=== PATIENT | male | born 1980 | race Caucasian/White ===

== ENCOUNTER 2017-01-01 22:18 | Emergency (ER) | payer BC ==
--- NOTE | 2017-01-01 22:45 | EDM.PDOC ---
ED HPI GENERAL MEDICAL PROBLEM - General Chief Complaint: Lower Extremity Injury/Pain Stated Complaint: PT HURT RT ANKLE Time Seen by Provider: 01/01/17 22:42 - History of Present Illness INITIAL COMMENTS - FREE TEXT/NARRATIVE: HISTORY AND PHYSICAL: History of present illness: Patient 36-year-old male presents with internal acute right ankle injury this occurred earlier today when he rolled his ankle he denies other trauma concern Review of systems: As per history of present illness and below otherwise all systems reviewed and negative. Past medical history: As per history of present illness and as reviewed below otherwise noncontributory. Surgical history: As per history of present illness and as reviewed below otherwise noncontributory. Social history: No reported history of drug or alcohol abuse. Family history: As per history of present illness and as reviewed below otherwise noncontributory. Physical exam: HEENT: Atraumatic, normocephalic, pupils reactive, negative for conjunctival pallor or scleral icterus, mucous membranes moist, throat clear, neck supple, nontender, trachea midline. Lungs: Clear to auscultation, breath sounds equal bilaterally, chest nontender. Heart: S1S2, regular, negative for clicks, rubs, or JVD. Abdomen: Soft, nondistended, nontender. Negative for masses or hepatosplenomegaly. Negative for costovertebral tenderness. Pelvis: Stable nontender. Genitourinary: Deferred. Rectal: Deferred. Extremities: Pain and swelling Thomas region lateral malleolus there is no crepitation or point tenderness no proximal fibular tenderness Achilles tendon is intact CMS neurovascular exam are unremarkable Neuro: Awake, alert, oriented. Cranial nerves II through XII unremarkable. Cerebellum unremarkable. Motor and sensory unremarkable throughout. Exam nonfocal. Diagnostics: X-ray right ankle Therapeutics: To be determined Impression: #1 acute right ankle injury Definitive disposition and diagnosis as appropriate pending reevaluation and review of above. right ankle Pain Score (Numeric/FACES): 9 - Related Data Allergies Allergy/AdvReac Type Severity Reaction Status Date / Time No Known Allergies Allergy Verified 01/01/17 22:36 Home Meds: Home Meds . [No Known Home Meds] 01/01/17 [History] Past Medical History HEENT History: Reports: None Cardiovascular History: Reports: None Respiratory History: Reports: None Gastrointestinal History: Reports: None Genitourinary History: Reports: None Musculoskeletal History: Reports: Other (See Below) Other Musculoskeletal History: fracture collar bone. compress fracture vertebra Neurological History: Reports: None Psychiatric History: Reports: None Endocrine/Metabolic History: Reports: None Hematologic History: Reports: None Immunologic History: Reports: None Oncologic (Cancer) History: Reports: None Dermatologic History: Reports: None - Infectious Disease History Infectious Disease History: Reports: None - Past Surgical History Head Surgeries/Procedures: Reports: None GI Surgical History: Reports: Appendectomy, Hernia, Inguinal Musculoskeletal Surgical History: Reports: Shoulder Surgery Social & Family History - Family History Family Medical History: Noncontributory - Tobacco Use Smoking Status *Q: Never Smoker - Caffeine Use Caffeine Use: Reports: Energy Drinks - Recreational Drug Use Recreational Drug Use: No Review of Systems - Review of Systems Review Of Systems: ROS reveals no pertinent complaints other than HPI. ED EXAM, GENERAL - Physical Exam Exam: See Below (See dictation) Course - Vital Signs Last Recorded V/S: Last Vital Signs Temp 36.5 C 01/01/17 22:36 Pulse 92 01/01/17 22:36 Resp 18 01/01/17 22:36 BP 131/81 01/01/17 22:36 Pulse Ox 98 01/01/17 22:36 - Orders/Labs/Meds Orders: Active Orders 24 hr Category Date Time Status Ankle Min 3V Rt [CR] Stat Exams 01/01/17 22:31 Taken Foot 2V Rt [CR] Stat Exams 01/01/17 22:31 Taken Departure - Departure Time of Disposition: 22:45 Disposition: Home, Self-Care 01 Condition: Good Clinical Impression: Ankle injury - Discharge Information Referrals: PCP,None [Primary Care Provider] - Forms: ED Department Discharge Additional Instructions: The following information is given to patients seen in the emergency department who are being discharged to home. This information is to outline your options for follow-up care. We provide all patients seen in our emergency department with a follow-up referral. The need for follow-up, as well as the timing and circumstances, are variable depending upon the specifics of your emergency department visit. If you don't have a primary care physician on staff, we will provide you with a referral. We always advise you to contact your personal physician following an emergency department visit to inform them of the circumstance of the visit and for follow-up with them and/or the need for any referrals to a consulting specialist. The emergency department will also refer you to a specialist when appropriate. This referral assures that you have the opportunity for followup care with a specialist. All of these measure are taken in an effort to provide you with optimal care, which includes your followup. Under all circumstances we always encourage you to contact your private physician who remains a resource for coordinating your care. When calling for followup care, please make the office aware that this follow-up is from your recent emergency room visit. If for any reason you are refused follow-up, please contact the [facility] emergency department at and asked to speak to the emergency department charge nurse Motrin/Tylenol as directed Lorenzo wrap crutches as discussed follow primary medical doctor 1-2 days return as needed as discussed[] - My Orders Last 24 Hours: My Active Orders 01/01/17 22:31 Ankle Min 3V Rt [CR] Stat Foot 2V Rt [CR] Stat - Assessment/Plan Last 24 Hours: My Active Orders 01/01/17 22:31 Ankle Min 3V Rt [CR] Stat Foot 2V Rt [CR] Stat
--- NOTE | 2017-01-02 14:52 | CR ---
EXAM DATE: 01/01/17 PATIENT'S AGE: 36 Patient: DEMETRIA GARCIA Facility: [place], [place] Site . Site : 1980 Study: XRay Extremity Right Ankle [id number]/7/2017 11:21:10 PM Ordering Physician: Doctor Porras Final Report: INDICATION: Twisted ankle TECHNIQUE: Ankle radiograph 3 views right COMPARISON: None FINDINGS: Bones: Alignment is normal. No acute fractures or aggressive bone lesions identified. Joint spaces: Unremarkable. No ankle joint effusion is seen. Soft tissues: Unremarkable. No radiopaque foreign bodies are seen. IMPRESSION: 1. No acute osseous injuries are noted. Dictated by: Nelson Red MD @ 01/01/2017 23:25:39 (Electronic Signature) Report Signed by Proxy. [facility] INSANEClare
--- NOTE | 2017-01-02 14:53 | CR ---
EXAM DATE: 01/01/17 PATIENT'S AGE: 36 Patient: DEMETRIA GARCIA Facility: [place], [place] Site . Site : 1980 Study: XRay Extremity Right Foot [id number]/7/2017 11:21:39 PM Ordering Physician: Doctor Porras Final Report: INDICATION: Foot pain TECHNIQUE: Foot radiograph 2 views right COMPARISON: None FINDINGS: Bones: No acute fractures or aggressive bone lesions are identified. Osseous remodeling is seen at the base of the 2nd and 3rd metatarsals, likely due to prior injuries. Joints: The visualized hindfoot, midfoot, and forefoot joints are unremarkable in appearance. No significant ankle effusion is seen. Soft tissue: Unremarkable. No radiopaque foreign bodies are seen. IMPRESSION: 1. No acute osseous injuries or abnormalities are noted. Dictated by Nelson Red MD @ 01/01/2017 11:26:47 PM Dictated by: Nelson Red MD @ 01/01/2017 23:27:00 (Electronic Signature) Report Signed by Proxy. SACHIN
== END 2017-01-02 00:39 | disposition home or self-care (01) ==
LOC: MW.ED 22:18
DX: S99.911A Unspecified injury of right ankle, initial encounter (principal); X50.9XXA Other and unspecified overexertion or strenuous movements or postures, initial encounter
CPT/HCPCS: 73610-26-RT; 73610-RT; 73620-26-RT; 73620-RT; 99282; 99283

== ENCOUNTER 2020-03-08 06:48 | Emergency (ER) | payer BC ==
[2020-03-08] MEDS ORDERED: Morphine 4 MG/ML Syringe IM ONE (07:09)
--- NOTE | 2020-03-08 07:19 | EDM.PDOC ---
ED HPI GENERAL MEDICAL PROBLEM - General Chief Complaint: Gastrointestinal Problem Stated Complaint: VOMITING Time Seen by Provider: 03/08/20 07:17 Source of Information: Reports: Patient History Limitations: Reports: No Limitations - History of Present Illness INITIAL COMMENTS - FREE TEXT/NARRATIVE: Patient is a 39-year-old male who presents today for epigastric pain. Patient states the pain started a few hours before arrival. Patient's pain is been squeezing in nature. Patient also reports she has had this pain in the past and normally goes away on its own. Patient denies any pain makes pain better rest pain worse. Patient does not like the pain radiates to his back. Patient denies any shortness of breath fever chills nausea vomiting or diarrhea. Upper Abdomen Pain Score (Numeric/FACES): 10 - Related Data Allergies Allergy/AdvReac Type Severity Reaction Status Date / Time No Known Allergies Allergy Verified 03/08/20 07:05 Home Meds: Home Meds Acetaminophen/HYDROcodone [[place] 325-5 MG] 1 tab PO Q6H PRN 2 Days #8 tablet 03/08/20 [Rx] Amoxicillin/Potassium Clav [Augmentin 875-125 Tablet] 1 each PO Q8HR 10 Days #30 tablet 03/08/20 [Rx] Mag Hydrox/Aluminum Hyd/Simeth [Maalox Maximum Strength Susp] 5 ml PO BID 5 Days #1 oral.susp 03/08/20 [Rx] Past Medical History - Past Health History Medical/Surgical History: Denies Medical/Surgical History HEENT History: Reports: None Cardiovascular History: Reports: None Respiratory History: Reports: None Gastrointestinal History: Reports: None Genitourinary History: Reports: None Musculoskeletal History: Reports: Other (See Below) Other Musculoskeletal History: fracture collar bone. compress fracture vertebra Neurological History: Reports: None Psychiatric History: Reports: None Endocrine/Metabolic History: Reports: None Hematologic History: Reports: None Immunologic History: Reports: None Oncologic (Cancer) History: Reports: None Dermatologic History: Reports: None - Infectious Disease History Infectious Disease History: Reports: None - Past Surgical History Head Surgeries/Procedures: Reports: None GI Surgical History: Reports: Appendectomy, Hernia, Inguinal Musculoskeletal Surgical History: Reports: Shoulder Surgery Social & Family History - Family History Family Medical History: No Pertinent Family History - Tobacco Use Tobacco Use Status *Q: Never Tobacco User - Caffeine Use Caffeine Use: Reports: Energy Drinks - Recreational Drug Use Recreational Drug Use: No ED ROS GENERAL - Review of Systems Review Of Systems: See Below Constitutional: Reports: No Symptoms HEENT: Reports: No Symptoms Respiratory: Reports: No Symptoms Cardiovascular: Reports: No Symptoms Endocrine: Reports: No Symptoms GI/Abdominal: Reports: Abdominal Pain : Reports: No Symptoms Musculoskeletal: Reports: No Symptoms Skin: Reports: No Symptoms Neurological: Reports: No Symptoms Psychiatric: Reports: No Symptoms Hematologic/Lymphatic: Reports: No Symptoms Immunologic: Reports: No Symptoms ED EXAM, GENERAL - Physical Exam Exam: See Below Exam Limited By: No Limitations General Appearance: Alert, WD/WN, Mild Distress Respiratory/Chest: No Respiratory Distress, Lungs Clear, Normal Breath Sounds Cardiovascular: Normal Peripheral Pulses, Regular Rate, Rhythm GI/Abdominal: Normal Bowel Sounds, Soft, Tender Extremities: Normal Inspection, Normal Range of Motion Neurological: Alert, CN II-XII Intact #1 Interpretation EKG Date: 03/08/20 Time: 06:55 Rhythm: NSR Rate (Beats/Min): 75 ST-T: Normal Course - Vital Signs Last Recorded V/S: Last Vital Signs Temp 97.8 F 03/08/20 07:02 Pulse 71 03/08/20 07:31 Resp 22 H 03/08/20 07:02 BP 140/95 H 03/08/20 07:31 Pulse Ox 96 03/08/20 07:31 - Orders/Labs/Meds Orders: Active Orders 24 hr Category Date Time Status EKG 12 Lead [EKG Documentation Completion] [RC] STAT Care 03/08/20 07:00 Active Labs: Laboratory Tests 03/08/20 03/08/20 03/08/20 Range/Units 06:54 06:54 06:54 WBC 7.74 (4.0-11.0) K/uL RBC 4.97 (4.50-5.90) M/uL Hgb 15.0 (13.0-17.0) g/dL Hct 43.6 (38.0-50.0) % MCV 87.7 (80.0-98.0) fL MCH 30.2 (27.0-32.0) pg MCHC 34.4 (31.0-37.0) g/dL RDW Std Deviation 39.1 (28.0-62.0) fl RDW Coeff of Elda 12 (11.0-15.0) % Plt Count 253 (150-400) K/uL MPV 10.60 (7.40-12.00) fL Neut % (Auto) 79.7 (48.0-80.0) % Lymph % (Auto) 14.0 L (16.0-40.0) % Chambers % (Auto) 4.5 (0.0-15.0) % Eos % (Auto) 1.4 (0.0-7.0) % Baso % (Auto) 0.4 (0.0-1.5) % Neut # (Auto) 6.2 H (1.4-5.7) K/uL Lymph # (Auto) 1.1 (0.6-2.4) K/uL Chambers # (Auto) 0.4 (0.0-0.8) K/uL Eos # (Auto) 0.1 (0.0-0.7) K/uL Baso # (Auto) 0.0 (0.0-0.1) K/uL Sodium 141 (136-148) mmol/L Potassium 3.9 (3.5-5.1) mmol/L Chloride 103 (98-107) mmol/L Carbon Dioxide 26.2 (21.0-32.0) mmol/L BUN 19 H (7.0-18.0) mg/dL Creatinine 1.3 (0.8-1.3) mg/dL Est Cr Clr Drug Dosing 77.53 mL/min Estimated GFR (MDRD) > 60.0 ml/min Glucose 126 H (74-106) mg/dL Calcium 10.1 (8.5-10.1) mg/dL Phosphorus 2.8 (2.6-4.7) mg/dL Magnesium 1.9 (1.8-2.4) mg/dL Total Bilirubin 0.4 (0.2-1.0) mg/dL AST 47 H (15-37) IU/L ALT 130 H (14-63) IU/L Alkaline Phosphatase 62 (46-116) U/L Troponin I < 0.050 (0.000-0.056) ng/mL Total Protein 8.0 (6.4-8.2) g/dL Albumin 4.3 (3.4-5.0) g/dL Globulin 3.7 (2.6-4.0) g/dL Albumin/Globulin Ratio 1.2 (0.9-1.6) Lipase 89 (73-393) U/L Ethyl Alcohol 3 mg/dL Meds: Medications Discontinued Medications Generic Name Dose Route Start Last Admin Trade Name Freq PRN Reason Stop Dose Admin Amoxicillin/Clavulanate Potassium 1 tab 03/08/20 09:33 03/08/20 09:48 Augmentin 875 Mg/125 Mg PO 03/08/20 09:34 1 tab ONETIME ONE Administration Al Hydroxide/Mg Hydroxide 15 0 ml 03/08/20 07:09 03/08/20 07:22 ml/ Lidocaine HCl 5 ml PO 03/08/20 07:10 1 each ONETIME ONE Administration Famotidine 20 mg 03/08/20 07:09 03/08/20 07:22 Pepcid IVPUSH 03/08/20 07:10 20 mg ONETIME ONE Administration Iopamidol 100 ml 03/08/20 08:42 03/08/20 08:54 Isovue Multipack-370 (76%) IVPUSH 03/08/20 08:43 100 ml ONETIME STA Administration Morphine Sulfate 4 mg 03/08/20 07:13 03/08/20 07:21 Morphine IVPUSH 03/08/20 07:14 4 mg ONETIME ONE Administration Ondansetron HCl 4 mg 03/08/20 07:22 03/08/20 07:25 Zofran IVPUSH 03/08/20 07:23 4 mg ONETIME ONE Administration Sodium Chloride 10 ml 03/08/20 07:24 03/08/20 07:24 Saline Flush FLUSH 03/08/20 07:25 10 ml ONETIME ONE Administration Sodium Chloride 2.5 ml 03/08/20 07:23 03/08/20 07:24 Saline Flush FLUSH 03/08/20 07:24 2.5 ml ONETIME ONE Administration - Re-Assessments/Exams Free Text/Narrative Re-Assessment/Exam: 03/08/20 10:03 EKG and troponins reviewed. Patient again has a heart score of 0 this is most likely GI related as he has some tenderness on examination. Patient has low- grade possible diverticulitis no signs of perforation patient will be sent home on antibiotics and can follow-up with GI as outpatient. Departure - Departure Time of Disposition: 10:04 Disposition: Home, Self-Care 01 Condition: Good Clinical Impression: Diverticulitis - Discharge Information *PRESCRIPTION DRUG MONITORING PROGRAM REVIEWED*: Not Applicable *COPY OF PRESCRIPTION DRUG MONITORING REPORT IN PATIENT SIRENA: Not Applicable Instructions: Diverticulitis, [id number] Referrals: PCP,None [Primary Care Provider] - Forms: ED Department Discharge Additional Instructions: The following information is given to patients seen in the emergency department who are being discharged to home. This information is to outline your options for follow-up care. We provide all patients seen in our emergency department with a follow-up referral. The need for follow-up, as well as the timing and circumstances, are variable depending upon the specifics of your emergency department visit. If you don't have a primary care physician on staff, we will provide you with a referral. We always advise you to contact your personal physician following an emergency department visit to inform them of the circumstance of the visit and for follow-up with them and/or the need for any referrals to a consulting specialist. The emergency department will also refer you to a specialist when appropriate. This referral assures that you have the opportunity for follow-up care with a specialist. All of these measure are taken in an effort to provide you with optimal care, which includes your follow-up. Under all circumstances we always encourage you to contact your private physician who remains a resource for coordinating your care. When calling for follow-up care, please make the office aware that this follow-up is from your recent emergency room visit. If for any reason you are refused follow-up, please contact the [facility] Emergency Department at and asked to speak to the emergency department charge nurse. Please follow up with your primary care physician. If you do not have a primary care physician, see below: [facility] [address] [place] [id number] [id number] Please follow-up with your primary care physician we have sent you antibiotics to the pharmacy as well as some medication to help out the pain. Sepsis Event Note (ED) - Evaluation Sepsis Screening Result: No Definite Risk - Focused Exam Vital Signs: Vital Signs Temp Pulse Resp BP Pulse Ox 03/08/20 07:31 71 140/95 H 96 03/08/20 07:24 71 158/100 H 99 03/08/20 07:02 97.8 F 76 22 H 150/103 H 99 - My Orders Last 24 Hours: My Active Orders 03/08/20 07:00 EKG 12 Lead [EKG Documentation Completion] [RC] STAT - Assessment/Plan Last 24 Hours: My Active Orders 03/08/20 07:00 EKG 12 Lead [EKG Documentation Completion] [RC] STAT Assessment:: Patient is a 39-year-old male presents today for epigastric pain. Patient has some gas tenderness on exam. Patient had pain for the past. Patient has a heart score of 0. This does not seem to be cardiac in nature. We will still order troponins and x-ray.
[2020-03-08] MEDS: Morphine 4 MG/ML Syringe IVPUSH ONE (07:21)
[2020-03-08] MEDS: Alum Hydrox/Mag Hydrox/Simeth 15 ML, Lidocaine 2% 5 ML PO ONE ×2 (07:22)
[2020-03-08] MEDS: Famotidine 20 MG/2 ML SDV IVPUSH ONE (07:22)
[2020-03-08] MEDS: Sodium Chloride 0.9% 10 ML Syringe FLUSH ONE (07:24)
[2020-03-08] MEDS: Sodium Chloride 0.9% 2.5 ML Syringe FLUSH ONE (07:24)
[2020-03-08] MEDS: Ondansetron 4 MG/2 ML SDV IVPUSH ONE (07:25)
[2020-03-08 07:27] LABS: BLOOD UREA NITROGEN,BUN 19 mg/dL (7.0-18.0); CARBON DIOXIDE,CO2 26.2 mmol/L (21.0-32.0); CHLORIDE,CL 103 mmol/L (98-107); GLUCOSE RANDOM 126 mg/dL (74-106); LIPASE 89 U/L (73-393); POTASSIUM,K 3.9 mmol/L (3.5-5.1); SODIUM,NA 141 mmol/L (136-148)
--- NOTE | 2020-03-08 07:31 | CR ---
HISTORY: Epigastric pain. TECHNIQUE: Portable frontal view of the chest. COMPARISON: None. FINDINGS: Mild elevation of the left hemidiaphragm. No airspace consolidation. No pleural effusion or pneumothorax. Pulmonary vasculature and cardiomediastinal silhouette are within normal limits. IMPRESSION: Mildly elevated left hemidiaphragm. No other cardiopulmonary abnormality. Dictated by Forest Diaz MD @ Mar 08 2020 7:29AM Signed by Dr. Forest Diaz @ Mar 08 2020 7:31AM
[2020-03-08] MEDS: Iopamidol 755 MG/ML 500 ML Multipack Bottle IVPUSH STA (08:54)
--- NOTE | 2020-03-08 09:21 | CT ---
Indication: Epigastric pain and tenderness Technique: Volumetric multidetector CT images of the abdomen and pelvis were obtained after the administration of intravenous contrast. 100 cc Isovue 370 low osmolar Comparison: None available. Findings: There is minimal bibasilar atelectasis versus scar. The liver demonstrates mild hepatic steatosis. There is no evidence of focal abnormality. The portal vein is patent. The gallbladder is unremarkable without evidence of radiopaque calculus. There is no significant common biliary ductal dilatation or abrupt cut off. The spleen is normal in enhancement and size. The stomach and duodenum are grossly unremarkable. The pancreas is normal in enhancement without significant atrophy. The adrenal glands are unremarkable. The kidneys demonstrate preserved corticomedullary differentiation without evidence of obstructive uropathy. There is distal colonic diverticulosis with questionable mild pericolonic inflammation of the proximal sigmoid colon. Otherwise the colon is grossly unremarkable. The appendix is not visualized. There is no significant mesenteric, retroperitoneal, or pelvic sidewall lymph nodes. The aorta is nonaneurysmal. There is no significant atherosclerotic disease appreciated. The solid pelvic viscera are grossly unremarkable. There is no free fluid or free air. The anterior abdominal wall is intact without significant hernias. The lumbar vertebral body heights are grossly maintained in satisfactory alignment without evidence of displaced fracture, lytic or blastic lesion. Impression: Moderate distal colonic diverticulosis with questionable subtle pericolonic inflammation which may represent low-grade diverticulitis. Correlate with history of clinical symptoms. Otherwise, no definite acute intra-abdominal abnormalities are appreciated. Please note that all CT scans at this facility use dose modulation, iterative reconstruction, and/or weight-based dosing when appropriate to reduce radiation dose to as low as reasonably achievable. Dictated by Sumit Santiago MD @ Mar 08 2020 9:02AM Signed by Dr. Sumit Santiago @ Mar 08 2020 9:19AM
[2020-03-08] MEDS: Amoxicillin/Clavulanate K 875-125 MG Tab PO ONE (09:48)
== END 2020-03-08 10:27 | disposition home or self-care (01) ==
LOC: MW.ED 06:48
DX: K57.32 Diverticulitis of large intestine without perforation or abscess without bleeding (principal)
CPT/HCPCS: 36415; 71045; 74177; 80053; 80179; 83690; 83735; 84100; 84484; 85025; 96374; 96375; 99284; A9270; J2270; J2405; J3490; Q9967; 93010

== ENCOUNTER 2020-05-04 08:22 | Observation (INO) | payer BC ==
[2020-05-04] MEDS ORDERED: Sodium Chloride 0.9% 2.5 ML Syringe FLUSH PRN (08:35)
[2020-05-04] MEDS ORDERED: Sodium Chloride 0.9% 10 ML Syringe FLUSH PRN (08:35)
[2020-05-04] MEDS ORDERED: Sodium Chloride 0.9% 1,000 ML IV ONE (08:36)
--- NOTE | 2020-05-04 08:38 | EDM.PDOC ---
ED HPI GENERAL MEDICAL PROBLEM - General Chief Complaint: Abdominal Pain Stated Complaint: VOMITING Time Seen by Provider: 05/04/20 08:25 - History of Present Illness INITIAL COMMENTS - FREE TEXT/NARRATIVE: History of present illness: [] Is in severe abdominal pain. It started terrible this morning about 2 AM. He has constant pain and vomiting.. Its a second episode in his life. He is not usually taking pain medicine does not have any history of addiction or pain medicine abuse. The patient has had one CT in his life which was done by my partner in February of this year when he was diagnosed with diverticulitis. He was able to be sent home with antibiotics and says that he did better. Review of systems: As per history of present illness and below otherwise all systems reviewed and negative. Past medical history: As per history of present illness and as reviewed below otherwise noncontributory. Surgical history: As per history of present illness and as reviewed below otherwise noncontributory. Social history: No reported history of drug or alcohol abuse. Family history: As per history of present illness and as reviewed below otherwise noncontributory. Physical exam: Constitutional - well developed, well-nourished and in no acute distress HEENT - normocephalic, no evidence of trauma - external nose and mouth normal - no mass in neck and no JVD - mucosae moist EYES - full EOM, PERRL, no icterus - no evidence of inflammation, injection, or drainage Respiratory - no respiratory distress, equal bilateral expansion, lungs clear to auscultation and no abnormal lung sounds Cardiovascular - Regular Rhythm with S1 and S2 appreciated and no murmur, gallop or rub. GI - abdomen guards diffusely especially in both lower quadrants. Without distension or organomegaly -managed bowel sounds - Musculoskeletal no gross deformity of long bones or joints - no tenderness, swelling or edema Neurologic - Alert and oriented times four - CN II-XII grossly intact - motor sensory and coordination symmetrically normal Psychiatric - appropriate mood and affect with normal thought content Hematologic - No petechiae or purpura - mucosa appropriate color and sclera not pale - normal nail bed color and refill Integument - no rash or evidence of trauma - normal turgor Diagnostics: [] Therapeutics: [] Impression: [] Plan: [] Definitive disposition and diagnosis as appropriate pending reevaluation and review of above. Abdominal Pain Score (Numeric/FACES): 10 - Related Data Allergies Allergy/AdvReac Type Severity Reaction Status Date / Time No Known Allergies Allergy Verified 05/04/20 08:35 Home Meds: Home Meds . [No Known Home Meds] 05/04/20 [History] Past Medical History - Past Health History Medical/Surgical History: Denies Medical/Surgical History HEENT History: Reports: None Cardiovascular History: Reports: None Respiratory History: Reports: None Gastrointestinal History: Reports: None Genitourinary History: Reports: None Musculoskeletal History: Reports: Other (See Below) Other Musculoskeletal History: fracture collar bone. compress fracture vertebra Neurological History: Reports: None Psychiatric History: Reports: None Endocrine/Metabolic History: Reports: None Hematologic History: Reports: None Immunologic History: Reports: None Oncologic (Cancer) History: Reports: None Dermatologic History: Reports: None - Infectious Disease History Infectious Disease History: Reports: None - Past Surgical History Head Surgeries/Procedures: Reports: None GI Surgical History: Reports: Appendectomy, Hernia, Inguinal Musculoskeletal Surgical History: Reports: Shoulder Surgery Social & Family History - Family History Family Medical History: No Pertinent Family History - Caffeine Use Caffeine Use: Reports: Energy Drinks ED ROS GENERAL - Review of Systems Review Of Systems: Comprehensive ROS is negative, except as noted in HPI. ED EXAM, GENERAL - Physical Exam Exam: See Below Free Text/Narrative:: My physical exam is in the HPI Course - Vital Signs Text/Narrative:: 090 6 AM the patient's pain is markedly improved. Patient is calm now. Awaiting CT. 11:59 AM patient had required a second dose of narcotic pain medicine. He had a positive Demarco sign on the ultrasound. He had sludge and stones with a dilated gallbladder. There was mild elevation of AST discussed with Dr. Km Alvarez and he said he would let the patient rest for a bit and then examined him in the emergency department and decide if he needed to have his gallbladder out emergently if he could go home and have it done electively at the clinic. [address] Alvarez is here the patient has requested a third dose of pain medicine Dr. Alvarez and patient will decide whether he needs to have an emergent cholecystectomy or can be seen in the clinic. 1:56 PM 1356 hrs. the patient and Dr. Alvarez decided he needed surgery tonight. This will be arranged and the patient will be placed in the outpatient unit. Last Recorded V/S: Last Vital Signs Temp 36.7 C 05/04/20 08:36 Pulse 72 05/04/20 11:33 Resp 18 05/04/20 08:36 BP 157/96 H 05/04/20 11:33 Pulse Ox 97 05/04/20 11:33 - Orders/Labs/Meds Orders: Active Orders 24 hr Category Date Time Status Admission Status [Patient Status] [ADT] Stat ADT 05/04/20 13:49 Ordered Dextrose 5%-0.45% NaCl [Dextrose 5%-1/2 NS] 1,000 ml Med 05/04/20 12:30 Active IV ASDIRECTED Sodium Chloride 0.9% [Saline Flush] Med 05/04/20 08:35 Active 10 ml FLUSH ASDIRECTED PRN Sodium Chloride 0.9% [Saline Flush] Med 05/04/20 08:35 Active 2.5 ml FLUSH ASDIRECTED PRN Saline Lock Insert [OM.PC] Stat Oth 05/04/20 08:35 Ordered Labs: Laboratory Tests 05/04/20 05/04/20 05/04/20 Range/Units 08:30 08:30 12:21 WBC 10.14 (4.0-11.0) K/uL RBC 4.94 (4.50-5.90) M/uL Hgb 14.8 (13.0-17.0) g/dL Hct 43.8 (38.0-50.0) % MCV 88.7 (80.0-98.0) fL MCH 30.0 (27.0-32.0) pg MCHC 33.8 (31.0-37.0) g/dL RDW Std Deviation 42.1 (28.0-62.0) fl RDW Coeff of Elda 13 (11.0-15.0) % Plt Count 328 (150-400) K/uL MPV 10.00 (7.40-12.00) fL Neut % (Auto) 91.2 H (48.0-80.0) % Lymph % (Auto) 6.3 L (16.0-40.0) % [place] % (Auto) 2.4 (0.0-15.0) % Eos % (Auto) 0.0 (0.0-7.0) % Baso % (Auto) 0.1 (0.0-1.5) % Neut # (Auto) 9.3 H (1.4-5.7) K/uL Lymph # (Auto) 0.6 (0.6-2.4) K/uL [place] # (Auto) 0.2 (0.0-0.8) K/uL Eos # (Auto) 0.0 (0.0-0.7) K/uL Baso # (Auto) 0.0 (0.0-0.1) K/uL Nucleated RBC % 0.0 /100WBC Nucleated RBCs # 0 K/uL Sodium 139 (136-148) mmol/L Potassium 3.7 (3.5-5.1) mmol/L Chloride 102 (98-107) mmol/L Carbon Dioxide 25.5 (21.0-32.0) mmol/L BUN 15 (7.0-18.0) mg/dL Creatinine 1.3 (0.8-1.3) mg/dL Est Cr Clr Drug Dosing 76.29 mL/min Estimated GFR (MDRD) > 60.0 ml/min Glucose 147 H (74-106) mg/dL Calcium 9.4 (8.5-10.1) mg/dL Total Bilirubin 0.5 (0.2-1.0) mg/dL AST 27 (15-37) IU/L ALT 65 H (14-63) IU/L Alkaline Phosphatase 55 (46-116) U/L Total Protein 7.7 (6.4-8.2) g/dL Albumin 4.2 (3.4-5.0) g/dL Globulin 3.5 (2.6-4.0) g/dL Albumin/Globulin Ratio 1.2 (0.9-1.6) Lipase 106 (73-393) U/L SARS-CoV-2 RNA (MARIA E) NEGATIVE (NEGATIVE) Departure - Departure Time of Disposition: 13:55 Disposition: Refer to Observation Condition: Good Clinical Impression: Biliary colic, Acute cholecystitis - Discharge Information Referrals: PCP,None [Primary Care Provider] - Forms: ED Department Discharge Sepsis Event Note (ED) - Focused Exam Vital Signs: Vital Signs Temp Pulse Resp BP Pulse Ox 05/04/20 11:33 72 157/96 H 97 05/04/20 08:36 36.7 C 66 18 140/82 98 - My Orders Last 24 Hours: My Active Orders 05/04/20 08:35 Sodium Chloride 0.9% [Saline Flush] 10 ml FLUSH ASDIRECTED PRN Sodium Chloride 0.9% [Saline Flush] 2.5 ml FLUSH ASDIRECTED PRN Saline Lock Insert [OM.PC] Stat 05/04/20 12:30 Dextrose 5%-0.45% NaCl [Dextrose 5%-1/2 NS] 1,000 ml IV ASDIRECTED 05/04/20 13:49 Admission Status [Patient Status] [ADT] Stat - Assessment/Plan Last 24 Hours: My Active Orders 05/04/20 08:35 Sodium Chloride 0.9% [Saline Flush] 10 ml FLUSH ASDIRECTED PRN Sodium Chloride 0.9% [Saline Flush] 2.5 ml FLUSH ASDIRECTED PRN Saline Lock Insert [OM.PC] Stat 05/04/20 12:30 Dextrose 5%-0.45% NaCl [Dextrose 5%-1/2 NS] 1,000 ml IV ASDIRECTED 05/04/20 13:49 Admission Status [Patient Status] [ADT] Stat
[2020-05-04] MEDS ORDERED: HYDROmorphone 2 MG/ML Syringe IVPUSH ONE ×3 (08:43→12:11)
[2020-05-04] MEDS ORDERED: Ondansetron 4 MG/2 ML SDV IVPUSH ONE ×2 (08:44→10:05)
[2020-05-04 09:01] LABS: BLOOD UREA NITROGEN,BUN 15 mg/dL (7.0-18.0); CARBON DIOXIDE,CO2 25.5 mmol/L (21.0-32.0); CHLORIDE,CL 102 mmol/L (98-107); GLUCOSE RANDOM 147 mg/dL (74-106); LIPASE 106 U/L (73-393); POTASSIUM,K 3.7 mmol/L (3.5-5.1); SODIUM,NA 139 mmol/L (136-148)
--- NOTE | 2020-05-04 10:40 | CT ---
INDICATION: Abdominal pain. Nausea and vomiting. TECHNIQUE: CT abdomen and pelvis acquired with 100 cc Isovue 370 IV contrast. COMPARISON: March 08, 2020. FINDINGS: Lower chest: Unremarkable. Liver: Unremarkable. Normal in size and attenuation. No masses. Gallbladder and bile ducts: Gallbladder is distended with evidence of gallbladder wall thickening/edema. No definite stones. No biliary dilatation. Pancreas: Unremarkable. No mass or inflammation. Spleen: Unremarkable. Normal in size. No masses. Adrenal glands: Unremarkable. No nodules. Kidneys: Unremarkable. No masses, stones, or hydronephrosis. GI tract: Subtle inflammatory changes and wall thickening amongst multiple diverticula in the sigmoid colon is similar to the prior exam. Remainder of the GI tract is normal in caliber and appearance. Vasculature: Unremarkable. Mesenteric arteries are patent. Lymph nodes: No lymphadenopathy. Omentum/Peritoneum/Abdominal Wall: Unremarkable. No sign of mass or infiltration. No free air or significant free fluid. Pelvis: Unremarkable. Bones: Unremarkable for age. IMPRESSION: 1. Gallbladder is moderately distended without evidence of wall thickening/edema. Findings are suspicious for acute cholecystitis. No gallstones visualized, however CT has a low sensitivity for gallstone detection. Ultrasound evaluation is recommended for further assessment. 2. Subtle inflammatory changes amongst multiple diverticula in the sigmoid colon are unchanged and likely chronic. Please note that all CT scans at this facility use dose modulation, iterative reconstruction, and/or weight-based dosing when appropriate to reduce radiation dose to as low as reasonably achievable. Dictated by Gregory Oliver MD @ May 04 2020 10:33AM Signed by Dr. Gregory Oliver @ May 04 2020 10:39AM
--- NOTE | 2020-05-04 11:48 | US ---
INDICATION: Abdominal pain. COMPARISON: CT earlier the same day. FINDINGS: The gallbladder is distended measuring up to 9.8 cm in length. The gallbladder is filled with echogenic debris, may represent sludge or stones. Gallbladder wall is thickened measuring up to 6 mm. No pericholecystic fluid. Reported positive sonographic Demarco`s. - The liver is unremarkable. The portal vein is patent and hepatopetal. Common bile duct is not well seen measuring approximately 1-2 mm in diameter. - The right kidney is unremarkable measuring 10.0 cm long axis. No hydronephrosis. Visualized portions of the pancreas are unremarkable. No ascites. IMPRESSION: 1. Findings suspicious for acute cholecystitis, as described above. Recommend surgical consultation for further management. Nuclear medicine HIDA scan could be obtained for further evaluation, as clinically warranted. 2. Other findings, as above. Dictated by Saleem Ahumada MD @ 05/04/2020 11:45:40 AM Dictated by: Saleem Ahumada MD @ 05/04/2020 11:45:49 (Electronically Signed)
[2020-05-04] MEDS ORDERED: Dextrose 5%-0.45% NaCl 1,000 ML IV SCH (12:30)
[2020-05-04] MEDS ORDERED: cefOXitin 2 GM in Premix Bag 1 BAG IV ONE ×3 (14:21→14:52)
[2020-05-04] MEDS ORDERED: Ondansetron 4 MG/2 ML SDV ONE (14:26)
[2020-05-04] MEDS ORDERED: Propofol 200 MG/20 ML SDV ONE ×2 (14:27→16:51)
[2020-05-04] MEDS ORDERED: Rocuronium Bromide 50 MG/5 ML Syringe ONE (14:27)
[2020-05-04] MEDS ORDERED: Glycopyrrolate 0.2 MG/ML SDV ONE (14:27)
[2020-05-04] MEDS ORDERED: fentaNYL 100 MCG/2 ML SDV ONE ×2 (14:27→16:56)
[2020-05-04] MEDS ORDERED: Midazolam 1 MG/ML 2 ML SDV ONE (14:27)
[2020-05-04] MEDS ORDERED: Sugammadex Sodium 200 MG/2 ML VIAL ONE ×2 (14:35→17:33)
[2020-05-04] MEDS ORDERED: Bupivacaine 25%/EPINEPHrine/PF 30 ML ONE (14:48)
[2020-05-04] MEDS ORDERED: cefOXitin 0 ML ONE (14:53)
[2020-05-04] MEDS ORDERED: Octyl 2-Cyanoacrylate 1 Tube ONE (15:17)
[2020-05-04] MEDS ORDERED: Dexamethasone 10 MG/ML SDV ONE (15:23)
[2020-05-04] MEDS ORDERED: Morphine 10 MG/ML Syringe ONE (15:52)
--- NOTE | 2020-05-04 16:11 | PCM.PREANE ---
Preanesthetic Assessment - Anesthesia/Transfusion/Family Hx Anesthesia History: Prior Anesthesia Without Reaction Family History of Anesthesia Reaction: No - Review of Systems General: No Symptoms Pulmonary: No Symptoms Cardiovascular: No Symptoms Gastrointestinal: Nausea, Vomiting Neurological: No Symptoms Other: Reports: None - Physical Assessment NPO Status Date: 05/04/20 NPO Status Time: 07:30 Vital Signs: Last Vital Signs Temp 36.7 C 05/04/20 08:36 Pulse 72 05/04/20 11:33 Resp 18 05/04/20 08:36 BP 157/96 H 05/04/20 11:33 Pulse Ox 97 05/04/20 11:33 Height: 1.75 m Weight: 85.729 kg ASA Class: 2E Mental Status: Alert & Oriented x3 Airway Class: Mallampati = 1 Dentition: Reports: Normal Dentition Thyro-Mental Finger Breadths: 3 Mouth Opening Finger Breadths: 3 ROM/Head Extension: Full Lungs: Clear to Auscultation, Normal Respiratory Effort Cardiovascular: Regular Rate, Regular Rhythm - Lab Values: Laboratory Last Values WBC 10.14 K/uL (4.0-11.0) 05/04/20 08:30 RBC 4.94 M/uL (4.50-5.90) 05/04/20 08:30 Hgb 14.8 g/dL (13.0-17.0) 05/04/20 08:30 Hct 43.8 % (38.0-50.0) 05/04/20 08:30 MCV 88.7 fL (80.0-98.0) 05/04/20 08:30 MCH 30.0 pg (27.0-32.0) 05/04/20 08:30 MCHC 33.8 g/dL (31.0-37.0) 05/04/20 08:30 RDW Std Deviation 42.1 fl (28.0-62.0) 05/04/20 08:30 RDW Coeff of Elda 13 % (11.0-15.0) 05/04/20 08:30 Plt Count 328 K/uL (150-400) 05/04/20 08:30 MPV 10.00 fL (7.40-12.00) 05/04/20 08:30 Neut % (Auto) 91.2 % (48.0-80.0) H 05/04/20 08:30 Lymph % (Auto) 6.3 % (16.0-40.0) L 05/04/20 08:30 [place] % (Auto) 2.4 % (0.0-15.0) 05/04/20 08:30 Eos % (Auto) 0.0 % (0.0-7.0) 05/04/20 08:30 Baso % (Auto) 0.1 % (0.0-1.5) 05/04/20 08:30 Neut # (Auto) 9.3 K/uL (1.4-5.7) H 05/04/20 08:30 Lymph # (Auto) 0.6 K/uL (0.6-2.4) 05/04/20 08:30 [place] # (Auto) 0.2 K/uL (0.0-0.8) 05/04/20 08:30 Eos # (Auto) 0.0 K/uL (0.0-0.7) 05/04/20 08:30 Baso # (Auto) 0.0 K/uL (0.0-0.1) 05/04/20 08:30 Nucleated RBC % 0.0 /100WBC 05/04/20 08:30 Nucleated RBCs # 0 K/uL 05/04/20 08:30 Sodium 139 mmol/L (136-148) 05/04/20 08:30 Potassium 3.7 mmol/L (3.5-5.1) 05/04/20 08:30 Chloride 102 mmol/L (98-107) 05/04/20 08:30 Carbon Dioxide 25.5 mmol/L (21.0-32.0) 05/04/20 08:30 BUN 15 mg/dL (7.0-18.0) 05/04/20 08:30 Creatinine 1.3 mg/dL (0.8-1.3) 05/04/20 08:30 Est Cr Clr Drug Dosing 76.29 mL/min 05/04/20 08:30 Estimated GFR (MDRD) > 60.0 ml/min 05/04/20 08:30 Glucose 147 mg/dL (74-106) H 05/04/20 08:30 Calcium 9.4 mg/dL (8.5-10.1) 05/04/20 08:30 Total Bilirubin 0.5 mg/dL (0.2-1.0) 05/04/20 08:30 AST 27 IU/L (15-37) 05/04/20 08:30 ALT 65 IU/L (14-63) H 05/04/20 08:30 Alkaline Phosphatase 55 U/L (46-116) 05/04/20 08:30 Total Protein 7.7 g/dL (6.4-8.2) 05/04/20 08:30 Albumin 4.2 g/dL (3.4-5.0) 05/04/20 08:30 Globulin 3.5 g/dL (2.6-4.0) 05/04/20 08:30 Albumin/Globulin Ratio 1.2 (0.9-1.6) 05/04/20 08:30 Lipase 106 U/L (73-393) 05/04/20 08:30 SARS-CoV-2 RNA (MARIA E) NEGATIVE (NEGATIVE) 05/04/20 12:21 - Allergies Allergies/Adverse Reactions: Allergies Allergy/AdvReac Type Severity Reaction Status Date / Time No Known Allergies Allergy Verified 05/04/20 08:35 - Acknowledgements Anesthesia Type Planned: General Anesthesia (The patients understands and accepts the anesthetic risks and benefits of General Anesthesia. All questions answered. Consent signed. ) Pt an Appropriate Candidate for the Planned Anesthesia: Yes Alternatives and Risks of Anesthesia Discussed w Pt/Guardian: Yes Pt/Guardian Understands and Agrees with Anesthesia Plan: Yes PreAnesthesia Questionnaire - Past Health History Medical/Surgical History: Denies Medical/Surgical History HEENT History: Reports: None Cardiovascular History: Reports: None Respiratory History: Reports: None Gastrointestinal History: Reports: Diverticulosis, GERD (not sure if this is related to the gallbladder or a new diagnosis) Genitourinary History: Reports: None Musculoskeletal History: Reports: Other (See Below) Other Musculoskeletal History: fracture collar bone. compress fracture vertebra Neurological History: Reports: None Psychiatric History: Reports: None Endocrine/Metabolic History: Reports: None Hematologic History: Reports: None Immunologic History: Reports: None Oncologic (Cancer) History: Reports: None Dermatologic History: Reports: None - Infectious Disease History Infectious Disease History: Reports: Other (See Below) (COVID NEGATIVE) - Past Surgical History Head Surgeries/Procedures: Reports: None GI Surgical History: Reports: Appendectomy, Hernia, Inguinal Musculoskeletal Surgical History: Reports: Shoulder Surgery - History Comment History Comment: ETOH "1-2X a week" - SUBSTANCE USE Tobacco Use Status *Q: Unknown Ever Used Tobacco Recreational Drug Use History: No - HOME MEDS Home Medications: Home Meds . [No Known Home Meds] 05/04/20 [History]
[2020-05-04] MEDS ORDERED: Morphine 10 MG/ML Syringe IVPUSH ONE (16:28)
[2020-05-04] MEDS ORDERED: Ketorolac 30 MG/ML SDV ONE (17:24)
[2020-05-04] MEDS ORDERED: Ondansetron 4 MG/2 ML SDV IVPUSH PRN (17:42)
[2020-05-04] MEDS ORDERED: Acetaminophen/HYDROcodone 325-5 MG Tab PO PRN (17:42)
[2020-05-04] MEDS ORDERED: HYDROmorphone 2 MG/ML Syringe IVPUSH PRN (17:42)
--- NOTE | 2020-05-04 17:42 | PCM.OPNOTE ---
- General Post-Op/Procedure Note Date of Surgery/Procedure: 05/04/20 Operative Procedure(s): Laparoscopic cholecystectomy Findings: distended and edematous gallbladder dictation number #[id number] Pre Op Diagnosis: Symptomatic cholelithiasis Post-Op Diagnosis: acute cholecystitis Anesthesia Technique: General ET Tube Primary Surgeon: Km Alvarez Pathology: gallbladder EBL in mLs: 10 Complications: None Condition: Stable
[2020-05-04] MEDS ORDERED: Lactated Ringers 1,000 ML IV SCH (17:45)
[2020-05-04] MEDS ORDERED: cefOXitin 2 GM in Premix Bag 1 BAG IV SCH ×3 (17:45→20:45)
[2020-05-04] MEDS ORDERED: Iopamidol 755 MG/ML 500 ML Multipack Bottle IVPUSH STA (18:19)
--- NOTE | 2020-05-04 18:34 | PCM.POSTAN ---
POST ANESTHESIA ASSESSMENT - MENTAL STATUS Mental Status: Alert - VITAL SIGNS Vital Signs: Last Vital Signs Temp 368 C H 05/04/20 17:43 Pulse 93 05/04/20 18:03 Resp 12 05/04/20 18:03 BP 129/85 05/04/20 18:03 Pulse Ox 97 05/04/20 18:03 - RESPIRATORY Respiratory Status: Respiratory Rate WNL - CARDIOVASCULAR CV Status: Pulse Rate WNL - GASTROINTESTINAL GI Status: No Symptoms - PAIN Pain Score: 0 - POST OP HYDRATION Hydration Status: Adequate & Stable - OBSERVATIONS Free Text/Narrative:: Doing well.
--- NOTE | 2020-05-04 18:58 | PCM48HPAN ---
Post Anesthesia Note - EVALUATION WITHIN 48HRS OF ANESTHETIC Vital Signs in Normal Range: Yes Patient Participated in Evaluation: Yes Respiratory Function Stable: Yes Airway Patent: Yes Cardiovascular Function Stable: Yes Hydration Status Stable: Yes Pain Control Satisfactory: Yes (No pain.) Nausea and Vomiting Control Satisfactory: Yes (Fluids without issues.) Mental Status Recovered: Yes Vital Signs: Last Vital Signs Temp 368 C H 05/04/20 17:43 Pulse 93 05/04/20 18:03 Resp 12 05/04/20 18:03 BP 129/85 05/04/20 18:03 Pulse Ox 97 05/04/20 18:03 - COMMENTS/OBSERVATIONS Free Text/Narrative:: May be discharged at patients request.
--- NOTE | 2020-05-05 00:48 | OR ---
SURGEON: MARKUS HARDY MD DATE OF PROCEDURE: 05/04/2020 PREOPERATIVE DIAGNOSIS: Symptomatic cholelithiasis. POSTOPERATIVE DIAGNOSIS: Acute cholelithiasis. PROCEDURE PERFORMED: Laparoscopic cholecystectomy. ESTIMATED BLOOD LOSS: 10 mL. PATHOLOGY SPECIMEN: Gallbladder. PRIMARY SURGEON: Markus Hardy MD LAUNDRY CLERK: Dr. Carroll Gilbert, PGY-2, [facility] resident care provider. ANESTHESIA: General. COMPLICATIONS: None. FINDINGS: Acutely edematous and distended gallbladder. REASON FOR PROCEDURE: The patient is a pleasant 39-year-old gentleman, who woke up early this morning with severe right abdominal pain, nausea, and vomiting. He is unable to really control this. He went to the ER for evaluation. He was found to have sludge or small stones in his gallbladder along with some gallbladder thickening. I did go over with the patient this is likely cholelithiasis. We went over the risks, goals, and alternatives of removal of the gallbladder; risks include, but not limited to bleeding, infection, bile leak, injury to common bile duct or duodenum, hernia formation, need to convert to open and that this could be something other than his gallbladder. The patient understood. He wishes to proceed. OPERATIVE NARRATIVE: The patient was brought back to the OR. He was prepped and draped in usual sterile fashion. SCDs were placed. Antibiotics were given and anesthesia was provided by the Anesthesia team. Time-out was performed. An infraumbilical incision was made. This was carried down to the fascia. Fascia was entered in open Minnie technique. Once the Minnie trocar sucker was placed, insufflation was began and pneumoperitoneum was established. The abdomen was inspected. No entry injury was noted. Now, three more 5 mm trocars were placed, one in the epigastric, one in the subcostal margin, one in the right lower abdomen were placed under direct visualization. The gallbladder was very distended, even had some petechia, bleeding to it. The gallbladder was needle decompressed. Now, the fundus was grabbed and elevated. The cystic duct and cystic artery were carefully dissected out. The patient did have quite a bit of fairly edematous tissue, but this was all gently dissected away mainly with blunt dissection and a little bit of Harmonic scalpel. We did use indocyanine green. The cystic duct did light up and you can even see the junction into the common bile duct liver. We did get a good critical view. We did do another injection of indocyanine green and the cystic artery also lit up appropriately. After this, the cystic duct and artery were clipped and transected. The gallbladder was then removed off the liver bed with Harmonic scalpel. It was then placed in an EndoCatch bag. The liver fossa was inspected. There was minimal bleeding which was cauterized with good hemostasis. The operative site was then suctioned and irrigated. Again, good hemostasis. Clips appeared to be in appropriate position and still intact. Now, the pneumoperitoneum was released and the 5 mm trocars were removed along with the Minnie trocar. The gallbladder was now removed in the EndoCatch bag. Now, the fascia was closed with a [id number] 0 Vicryl stitch. All the trocar sites were again injected with local and closed with 4-0 Monocryl and Dermabond. At the end of the case, sponge and needle counts were correct and the patient was transferred to the recovery room in stable condition. KAREN ASH /[id number]
--- NOTE | 2020-05-05 06:38 | CONS ---
DATE OF CONSULTATION: 05/04/2020 DATE OF : 1980 PRIMARY CARE PHYSICIAN: None PCP EMERGENCY ROOM CONSULTATION: HISTORY OF PRESENT ILLNESS: The patient is a pleasant 39-year-old gentleman who said he woke up early this morning with severe abdominal pain. The pain was more in the right upper abdomen. It was constant. He denies it really radiate anywhere, but did cause some nausea and vomiting. He had nausea and vomiting all morning. He came in this morning to the ER for evaluation. He continues to have right upper quadrant pain but he says that his whole abdominal wall feels painful, but he thinks the abdomen is more painful from all the vomiting with his abdominal muscles. The patient did have a CT scan which showed a distended gallbladder. The patient also had this subtle inflammatory change of diverticulosis in the sigmoid colon. This is actually similar to his last CT scan, unchanged. Ultrasound did show a distended gallbladder with debris, likely representing sludge or stones. Gallbladder wall is thickened at 6 mm. No pericholecystic fluid, does not appear to have a dilation of the common bile duct, it is 1 to 2 mm. No elevated white cell count. The patient said in February, he had a similar episode of abdominal pain and said it about two days for it to go away. PAST MEDICAL HISTORY: The patient denies any. CURRENT HOME MEDICATIONS: The patient denies any. ALLERGIES: No known drug allergies. PAST SURGICAL HISTORY: Appendectomy and inguinal hernia repair. SOCIAL HISTORY: The patient denies tobacco, denies illicit drug use. Only occasional alcohol use. FAMILY HISTORY: Denies any family history of cancer, diabetes, or heart disease. REVIEW OF SYSTEMS: Complete 12+ review of systems was done and was negative except for HPI. PHYSICAL EXAMINATION: GENERAL: The patient is lying in the ER bed, in moderate distress. VITAL SIGNS: The temperature is 98, pulse is 72, blood pressure is 157/96, and 97% on room air. HEENT: Head is normocephalic, atraumatic. He does have a mask in place. LUNGS: Clear to auscultation bilaterally. No rhonchi or wheezing heard. HEART: Regular rhythm. No murmur appreciated. ABDOMEN: Soft. He does have some diffuse tenderness. He does have some guarding and positive Demarco sign and much more tender in the right upper quadrant. Does have a well-healed incision, looks like from his open appendectomy. EXTREMITIES: No gross motor or neurologic deficits noted. LABORATORY DATA: White cell count is 10.14, hemoglobin is 14.8, platelet count is 328. Sodium is 139, potassium 3.7, chloride 102, BUN 15, creatinine 1.3, glucose is 147, total bilirubin 0.5, AST is 27, ALT is 65, alkaline phosphatase is 55, lipase is 106. COVID is negative. ASSESSMENT AND PLAN: This is a pleasant 39-year-old gentleman who appears to have symptomatic cholelithiasis. His pain has been constant since this evening and unrelenting. The patient has received multiple doses of Dilaudid which he says takes the edge off for a while, but then it comes back. Did go over with the patient what a gallbladder was, went over its functionality. Went over we could do a laparoscopic cholecystectomy. Went over with this with detail. Went over risks, goals, and alternatives of the surgery. Risks include, but are not limited to bleeding, infection, bile leak, retained gallstones, injury to nearby structures such as duodenum or common bile duct, hernia formation, need to convert to open, and that this could be something other than his gallbladder. The patient understands. He wishes to proceed. We will see if we can get him on the OR schedule today since he is remaining fairly tender and in pain from his symptomatic cholelithiasis. Also went over with the patient and his that he does have that constant subtle inflammation of the sigmoid colon. He should have this followed up with potentially a colonoscopy in the future. They understand, all their questions were answered. Also went over that I will be assisted by the [facility] neurosurgical nurse. He said he was okay with this. The patient also stated he wished to be full code for procedure. KAREN / MIHIR /[id number]
== END 2020-05-04 22:01 | disposition home or self-care (01) ==
LOC: MW.ED 08:22 → MW.SDS 14:50 → MW.MS 14:51
PROVIDERS: ADMIT Surgery; ATTEND Surgery
DX: K80.12 Calculus of gallbladder with acute and chronic cholecystitis without obstruction (principal); K82.A1 Gangrene of gallbladder in cholecystitis; K82.8 Other specified diseases of gallbladder; K57.30 Diverticulosis of large intestine without perforation or abscess without bleeding; Z01.812 Encounter for preprocedural laboratory examination; Z20.822 Contact with and (suspected) exposure to COVID-19; Z98.890 Other specified postprocedural states
CPT/HCPCS: 36415; 47562; 74177; 76705; 80053; 83690; 85025; 87635; 96365; 96375; 96376; 99285; A9270; J0131; J0694; J1170; J1885; J2250; J2405; J2704; J3010; J3490; J7030; J7042; J7120; Q9967; 88304; 99284; J2270; U0002